=== PATIENT | female | born 1965 | race Caucasian/White ===

== ENCOUNTER 2020-11-04 09:33 | Outpatient (CLI) | payer OTHER | END 2020-11-04 09:34 | disposition home or self-care (01) | LOC: BICMRI 09:33 | PROVIDERS: ATTEND Neurological Surgery | DX: M54.12 Radiculopathy, cervical region (principal); G95.0 Syringomyelia and syringobulbia; M46.92 Unspecified inflammatory spondylopathy, cervical region | CPT/HCPCS: 72141 ==

== ENCOUNTER 2021-01-13 12:41 | Outpatient (CLI) | payer OTHER ==
[2021-01-14 08:48] LABS: SARS-CoV-2 PCR by NAA DETECTED (NotDetected)
== END 2021-01-13 12:42 | disposition home or self-care (01) ==
LOC: LABBT 12:41
PROVIDERS: ATTEND Neurological Surgery
DX: Z01.812 Encounter for preprocedural laboratory examination (principal); G95.0 Syringomyelia and syringobulbia; U07.1 COVID-19
CPT/HCPCS: U0003; U0005

== ENCOUNTER 2021-02-14 10:38 | Day surgery (SDC) | payer OTHER ==
[2021-02-13 12:15] VITALS: BMI 27.3
[2021-02-14] MEDS ORDERED: Magnevist 469MG/ML 20 ML VIAL ONE (10:57)
[2021-02-14] MEDS ORDERED: Midazolam HCl 2 mg/2 ml Vial ONE (11:59)
[2021-02-14] MEDS ORDERED: Fentanyl 100 MCG/2 ML VIAL ONE (11:59)
[2021-02-14] MEDS ORDERED: PROPOFOL 200 MG/20 ML VIAL ONE (13:30)
[2021-02-14] MEDS ORDERED: Ondansetron PF 4 MG/2 ML Vial ONE (13:30)
[2021-02-14] MEDS ORDERED: ePHEDrine 50 MG/ML VIAL ONE (13:30)
[2021-02-14] MEDS ORDERED: Lidocaine 2% PF 5 ML VIAL ONE (13:30)
[2021-02-14] MEDS ORDERED: Dexamethasone 20 MG/5 ML VIAL ONE (13:30)
[2021-02-14] MEDS ORDERED: Glycopyrrolate 0.2 MG/ML 5 ML SYRINGE ONE (13:30)
== END 2021-02-14 15:58 | disposition home or self-care (01) ==
LOC: MRI 10:38
PROVIDERS: ATTEND Neurological Surgery
DX: G95.0 Syringomyelia and syringobulbia (principal); M47.814 Spondylosis without myelopathy or radiculopathy, thoracic region; M51.34 Other intervertebral disc degeneration, thoracic region; M48.04 Spinal stenosis, thoracic region; M51.24 Other intervertebral disc displacement, thoracic region; Z79.899 Other long term (current) drug therapy; Z91.018 Allergy to other foods; Z91.038 Other insect allergy status
CPT/HCPCS: 72157; A9579; J1100; J2001; J2250; J2405; J2704; J3010; J3490

== ENCOUNTER 2021-03-03 07:10 | Observation (INO) | payer OTHER ==
[2021-03-03] MEDS ORDERED: ceFAZolin Sodium (SDC) 2 GM/100 ML BAG ONE (08:05)
[2021-03-03] MEDS ORDERED: Neomycin-Polymyxin 1 ML AMP ONE (08:45)
[2021-03-03 08:54] LABS: #Basophils 0.1 thou/uL (0.0-0.2); #Eosinphils 0.4 thou/uL (0.0-0.7); #Lymphocytes 2.5 thou/uL (1.20-3.40); #Monocytes 0.5 thou/uL (0.11-0.59); #Neutrophils 3.6 thou/uL (1.40-6.50); %Eosinophils 5.9 % (0.0-10.0); %Lymphocytes 35.4 % (21.0-51.0); %Monocytes 7.2 % (0.0-10.0); %Neutrophils 50.6 % (42.0-75.0); Hemoglobin 13.9 g/dL (12.0-16.0); Mean Corpuscular HGB CONC 33.8 g/dL (32.0-36.0); Mean Corpuscular Hemoglobin 30.6 pg (27.0-31.0); Mean Corpuscular Volume 90.5 fL (78.0-98.0); Mean Platelet Volume 8.8 fL (7.4-10.4); Platelet Count 185 thou/uL (130-400); RBC Distribution Width 12.3 % (11.5-14.5); Red Blood Cell (RBC) Count 4.53 mill/uL (4.20-5.40); White Blood Cell (WBC) Count 7.2 thou/uL (4.8-10.8)
[2021-03-03 09:14] LABS: Anion Gap 10 mmol/L (10-20); BUN (Urea Nitrogen) 13 mg/dL (9.8-20.1); Calc. Creatinine Clearance 106 mL/min (70-130); Calcium 9.6 mg/dL (7.8-10.44); Carbon Dioxide 29 mmol/L (22-29); Chloride 104 mmol/L (98-107); Glucose 90 mg/dL (70-105); Potassium 4.1 mmol/L (3.5-5.1); Sodium 139 mmol/L (136-145)
[2021-03-03] MEDS ORDERED: Fentanyl 100 MCG/2 ML VIAL ONE ×3 (09:46→12:19)
[2021-03-03] MEDS ORDERED: HYDROmorphone 0.5 MG/0.5 ML SYRINGE ONE (09:57)
[2021-03-03] MEDS ORDERED: Dexamethasone 20 MG/5 ML VIAL ONE (10:33)
[2021-03-03] MEDS ORDERED: PHENYLEPHRINE-NS 100 MCG/ML 10 ML SYRINGE ONE (10:33)
[2021-03-03] MEDS ORDERED: Lidocaine 1% PF 5 ML VIAL ONE (10:33)
[2021-03-03] MEDS ORDERED: Glycopyrrolate 0.2 MG/ML 5 ML SYRINGE ONE (10:33)
[2021-03-03] MEDS ORDERED: Ondansetron PF 4 MG/2 ML Vial ONE ×2 (10:33→11:36)
[2021-03-03] MEDS ORDERED: Rocuronium Bromide 10 MG/ML (10ML VIAL) ONE (10:33)
[2021-03-03] MEDS ORDERED: PROPOFOL 200 MG/20 ML VIAL ONE (10:33)
[2021-03-03] MEDS ORDERED: Ondansetron HCl/PF 4 MG/2 ML Vial IVP PRN (11:23)
[2021-03-03] MEDS ORDERED: HYDROmorphone 2 MG/ML VIAL SLOW IVP PRN (11:23)
[2021-03-03] MEDS ORDERED: Promethazine HCl 25 MG/ML VIAL IVPB PRN (11:23)
[2021-03-03] MEDS ORDERED: Promethazine HCl 25 MG/ML VIAL IM PRN ×2 (11:23→12:30)
[2021-03-03] MEDS ORDERED: SUGAMMADEX SODIUM 200 MG/2 ML VIAL ONE (11:26)
[2021-03-03] MEDS ORDERED: Baclofen 10 MG TAB PO PRN (12:13)
[2021-03-03] MEDS ORDERED: Cyclobenzaprine 10 MG TAB PO PRN (12:15)
[2021-03-03] MEDS ORDERED: Ondansetron PF 4 MG/2 ML Vial IVP PRN (12:29)
[2021-03-03] MEDS ORDERED: Acetaminophen/Codeine 30-300mg Tablet PO PRN ×2 (12:30)
[2021-03-03] MEDS ORDERED: diphenhydrAMINE 50 MG/ML VIAL IVP PRN (12:30)
[2021-03-03] MEDS ORDERED: diphenhydrAMINE 25 MG CAP PO PRN (12:30)
[2021-03-03] MEDS ORDERED: Mag-Al 1200 mg/1200 mg/30 ML UDCUP PO PRN (12:30)
[2021-03-03] MEDS ORDERED: Morphine 2 MG/ML VIAL SLOW IVP PRN (12:30)
[2021-03-03] MEDS ORDERED: Promethazine 25 MG TAB PO PRN (12:30)
[2021-03-03] MEDS ORDERED: tiZANidine HCl 4 MG TAB PO PRN (12:30)
[2021-03-03] MEDS ORDERED: Milk Of Magnesia 30 ML UDCUP PO PRN (12:30)
[2021-03-03] MEDS ORDERED: Promethazine HCl 12.5 MG SUPP PR PRN (12:30)
[2021-03-03] MEDS ORDERED: Meperidine HCl/PF 25 MG/ML VIAL IV PRN ×2 (14:17→14:18)
[2021-03-03] MEDS: Morphine 4 MG/ML VIAL SLOW IVP PRN ×2 (14:22→22:38)
[2021-03-03] MEDS: Sodium Chloride 0.9% 1,000 ML IV SCH (14:47)
[2021-03-03] MEDS: Gabapentin 300 MG CAP PO SCH ×2 (14:48→20:34)
[2021-03-03] MEDS: traMADol HCl 50 MG TAB PO PRN (17:21)
[2021-03-03] MEDS: CEFAZOLIN 2 GM, Admixture Fee 1 EACH in Sodium Chloride 0.9% 100 ML IVPB SCH (18:03)
[2021-03-03] MEDS ORDERED: Mag-Al 1200 mg/1200 mg/30 ML UDCUP PO SCH (18:45)
[2021-03-04] MEDS: Sodium Chloride 0.9% 1,000 ML IV SCH ×2 (01:58→16:44)
[2021-03-04] MEDS: CEFAZOLIN 2 GM, Admixture Fee 1 EACH in Sodium Chloride 0.9% 100 ML IVPB SCH ×3 (02:05→21:12)
[2021-03-04] MEDS: traMADol HCl 50 MG TAB PO PRN ×3 (02:30→16:43)
[2021-03-04 08:05] VITALS: BP 115/73
[2021-03-04] MEDS: Magnesium Oxide 400 MG TAB PO SCH (09:03)
[2021-03-04] MEDS: Cholecalciferol 1,000 UNITS (25 MCG) TAB PO SCH (09:03)
[2021-03-04] MEDS: Gabapentin 300 MG CAP PO SCH ×3 (10:23→21:11)
[2021-03-04 14:33] VITALS: BMI 27.3
[2021-03-04] MEDS ORDERED: diphenhydrAMINE 50 MG/ML VIAL IVP SCH (17:48)
[2021-03-04] MEDS ORDERED: methylPREDNISolone Sod Succ/PF 125 MG/2 ML VIAL IVP SCH (17:49)
[2021-03-04] MEDS ORDERED: Famotidine/PF 20 mg/2ml Vial SLOW IVP SCH (17:54)
[2021-03-05] MEDS: CEFAZOLIN 2 GM, Admixture Fee 1 EACH in Sodium Chloride 0.9% 100 ML IVPB SCH ×2 (02:43→11:35)
[2021-03-05] MEDS: Sodium Chloride 0.9% 1,000 ML IV SCH (06:50)
[2021-03-05] MEDS: Gabapentin 300 MG CAP PO SCH ×2 (07:21→14:10)
[2021-03-05] MEDS: Magnesium Oxide 400 MG TAB PO SCH (07:21)
[2021-03-05] MEDS: Cholecalciferol 1,000 UNITS (25 MCG) TAB PO SCH (07:22)
[2021-03-05] MEDS: traMADol HCl 50 MG TAB PO PRN ×2 (07:23→14:10)
[2021-03-05 07:30] LABS: #Lymphocytes 1.2 thou/uL (1.20-3.40); #Monocytes 0.4 thou/uL (0.11-0.59); #Neutrophils 9.1 thou/uL (1.40-6.50); %Basophils 0.1 % (0.0-1.0); %Lymphocytes 11.3 % (21.0-51.0); %Monocytes 3.7 % (0.0-10.0); %Neutrophils 84.8 % (42.0-75.0); Hemoglobin 13.9 g/dL (12.0-16.0); Mean Corpuscular HGB CONC 31.8 g/dL (32.0-36.0); Mean Corpuscular Hemoglobin 29.5 pg (27.0-31.0); Mean Corpuscular Volume 92.6 fL (78.0-98.0); Mean Platelet Volume 8.7 fL (7.4-10.4); Platelet Count 195 thou/uL (130-400); RBC Distribution Width 12.3 % (11.5-14.5); Red Blood Cell (RBC) Count 4.73 mill/uL (4.20-5.40); White Blood Cell (WBC) Count 10.7 thou/uL (4.8-10.8)
[2021-03-05 07:52] LABS: ALT (SGPT) 15 U/L (8-55); AST (SGOT) 11 U/L (5-34); Alkaline Phosphatase 67 U/L (40-110); Anion Gap 13 mmol/L (10-20); BUN (Urea Nitrogen) 16 mg/dL (9.8-20.1); Bilirubin, Total 0.4 mg/dL (0.2-1.2); Calc. Creatinine Clearance 96 mL/min (70-130); Calcium 9.6 mg/dL (7.8-10.44); Carbon Dioxide 26 mmol/L (22-29); Chloride 105 mmol/L (98-107); Globulin 2.8 g/dL (2.4-3.5); Glucose 159 mg/dL (70-105); Potassium 4.2 mmol/L (3.5-5.1); Protein, Total 6.8 g/dL (6.0-8.3); Sodium 140 mmol/L (136-145)
[2021-03-05 12:21] VITALS: TEMP 97.5
== END 2021-03-05 16:17 | disposition home or self-care (01) ==
LOC: SDC 07:10 → T4-B 11:42 → IMCU/EMU 03-04 18:33
PROVIDERS: ADMIT Neurological Surgery; ATTEND Neurological Surgery
PROC: 0RG20A0 Fusion of 2 or more Cervical Vertebral Joints with Interbody Fusion Device, Anterior Approach, Anterior Column, Open Approach (ICD-10-PCS; principal; 2021-03-03)
DX: M50.122 Cervical disc disorder at C5-C6 level with radiculopathy (principal); T78.08XA Anaphylactic reaction due to eggs, initial encounter; M48.02 Spinal stenosis, cervical region; M51.34 Other intervertebral disc degeneration, thoracic region; Z79.899 Other long term (current) drug therapy; Z91.018 Allergy to other foods; Z91.038 Other insect allergy status
CPT/HCPCS: 36415; 36416; 76000; 80048; 80053; 85025; 93005; 93010; 96374; 96375; 96376; C1713; C1776; G0378; J0690; J1100; J1170; J1200; J2270; J2405; J2704; J2930; J3010; J3490; J7050; S0028

== ENCOUNTER 2021-03-26 14:05 | Outpatient (CLI) | payer OTHER | END 2021-03-26 14:06 | disposition home or self-care (01) | LOC: TBSIIMAG 14:05 | PROVIDERS: ATTEND Physician Assistant | DX: M50.30 Other cervical disc degeneration, unspecified cervical region (principal); M47.812 Spondylosis without myelopathy or radiculopathy, cervical region; Z98.890 Other specified postprocedural states | CPT/HCPCS: 72050 ==